=== PATIENT | female | born 1950 | race Caucasian/White ===

== ENCOUNTER 2021-07-02 12:54 | Emergency (ER) | payer MEDICARE | END 2021-07-02 14:03 | disposition home or self-care (01) | LOC: ER1 12:54 | DX: S92.414A Nondisplaced fracture of proximal phalanx of right great toe, initial encounter for closed fracture (principal); I10 Essential (primary) hypertension; Z88.8 Allergy status to other drugs, medicaments and biological substances; Z88.0 Allergy status to penicillin; W22.8XXA Striking against or struck by other objects, initial encounter; Y92.009 Unspecified place in unspecified non-institutional (private) residence as the place of occurrence of the external cause | CPT/HCPCS: 73630; 99283 ==